=== PATIENT | female | born 1960 | race Caucasian/White ===

== ENCOUNTER 2021-05-22 18:22 | Emergency (ER) | payer MEDICARE, OTHER, SELFPAY ==
[2021-05-22 18:49] VITALS: BP 122/76; PULSE 77; RESP 16; TEMP 38.4; O2SAT 95; BMI 38.0
--- NOTE | 2021-05-22 18:58 | ED_ITS ---
HPI - Allergic Reaction General: Chief complaint: Allergic Reaction Stated complaint: Headache\Nausea\Vomiting Time Seen by Provider: 05/22/21 18:58 History of Present Illness: HPI narrative: Patient is a 61-year-old female comes to the ED with headache, and malaise. Patient received her second COVID- 19 vaccination yesterday. Today she has had a fever, headache, fatigue, nausea and body aches. Patient has not taken any Tylenol or ibuprofen today before c oming to the ED. Associated symptoms: Reports nausea; Deny abdominal pain or vomiting Review of Systems Const: Reports: fever(s), body aches, fatigue and malaise; Denies: chills Eyes: Denies: change in vision or eye discomfort ENMT: Denies: throat pain, odynophagia, nasal discharge or nasal congestion Card: Denies: chest pain, palpitations, edema, swelling of feet/ankles, dyspnea on exertion or orthopnea Resp: Denies: dyspnea, productive cough or non-productive cough GI: Reports: nausea; Denies: abdominal pain, vomiting, diarrhea, constipation or hematochezia : Denies: flank pain, dysuria or hematuria Musc: Denies: neck pain, back pain or extremity swelling Skin/Breast: Denies: rash or new lesions Neuro: Reports: headache(s); Denies: numbness in extremities or weakness in extremities PFSH ED PFSH: Social History Smoking and tobacco status: current every day smoker cigarettes Packs smoked per day: 1 Quit status (tobacco): not considering quitting Second hand smoke exposure: No Alcohol intake: never Desire information about alcohol rehabilitation?: No Desire information about substance/drug rehabilitation?: No History of recent travel: No Current gender identity: Female Physical Exam Const: COMMON NORMALS: no acute distress, patient oriented x3, healthy appea ring and alert GENERAL APPEARANCE: cooperative and comfortable HENMT: COMMON NORMALS: normocephalic HEAD & SCALP: normocephalic MOUTH: Normal oral and palatal mucosa present THROAT: posterior oropharynx normal and uvula midline Neck/C-Spine: COMMON NORMALS: supple GENERAL: Yes normal visual inspection Resp: COMMON NORMALS: normal respiratory effort, No retractions, No use of accessory muscles and clear to auscultation bilaterally AUSCULTATION: clear to auscultation bilaterally Cardio: COMMON NORMALS: regular rate, regular rhythm, S1 normal heart sound present, S2 normal heart sound present, No gallops present (Cardio), No clicks present (Cardio), No murmurs present (Cardio) and Peripheral pulses 2+ throughout RATE: regular rate RHYTHM: regular rhythm HEART SOUNDS: S1 normal heart sound present and S2 normal heart sound present PERIPHERAL PULSES: Peripheral pulses 2+ throughout GI: COMMON NORMALS: Normal to inspection, nondistended, normoactive bowel sounds present, Soft to palpation, non-tender and no masses PALPATION: Yes Soft to palpation : COMMON NORMALS: Yes no CVA tenderness BLADDER/KIDNEY EXAM: Yes no CVA tenderness Back/Pelvis: COMMON NORMALS: no CVA tenderness Extremity: COMMON NORMALS: normal to inspection Neuro: COMMON NORMALS: patient oriented x3 and moves all extremities SENSORIUM/ORIENTATION: Yes alert Skin: GENERAL SKIN EXAM: dry skin Course Vital Signs: Vital signs: Vital Signs Temperature 101.1 F H 05/22/21 18:49 Pulse Rate 86 05/22/21 19:38 Respiratory Rate 18 05/22/21 19:38 Blood Pressure 122/76 05/22/21 18:49 Pulse Oximetry 96 05/22/21 19:38 MDM - Allergic Reaction MDM Narrative: Medical decision making narrative: Patient is a 61-year-old female comes to the ED with a fever. Patient received her second COVID-19 vaccination yesterday and today she woke up with a fever body aches, left arm pain and a headache. Temperature is a 101.1 here in the ED and she has not taken any Tylenol or ibuprofen today. Exam is benign and patient appears nontoxic and in no acute distress. I discussed with patient that this is likely some side effects after getting vaccinated yesterday. He is are fairly common usually benign and I told patient to go home and rest and take Tylenol or ibuprofen to help with symptoms. Patient was given a dose of Zofran and Toradol while here in the ED and discharged home. Patient diagnosed with fever after COVID-19 vaccination. She was told to follow-up with her PCP in 7 to 10 days for reevaluation. Return to ED precautions given. Patient understood agree with plan. Discharge Plan Discharge Patient Disposition: Home Clinical Impression: Fever after COVID-19 vaccination Condition: Stable Prescriptions: New Zofran 4 mg tablet 4 mg PO Q8H PRN (Reason: nausea and vomiting) Qty: 10 RF: 0 No Action No Known Home Medications RF: 0 naproxen 500 mg tablet 500 mg PO BID PRN (Reason: pain) Qty: 60 RF: 0 Discharge Orders: Discharge ED (Routine); Ordered 05/22/21 Ordered By: Hussein Murray Discharge Diet: Regular Discharge Activity: Resume usual activity Activity Restrictions/Additional Instructions: Follow-up with medical provider as directed in 5 to 7 days reevaluation. Take medications as prescribed. Drink plenty fluids and stay hydrated. Return to the ER or your medical provider if condition worsens. Please read and understand discharge instructions. Thank you for choosing [facility] for your healthcare needs today. Please realize this is an emergency room and that we are providing you with a medical screening exam and this may not be complete and all inclusive of all the testing and or work up that you may need to determine your ailment or severity of your illness. It is very important that you follow up as instructed or that you return to the Emergency Department should you have concerns or if your condition changes or worsens in any way. Coding Level of Care Code ED Director Home [facility] for [facility] Exam Comprehensive
[2021-05-22] MEDS: ketorolac 60 mg/2 mL INJ IM (19:31)
[2021-05-22] MEDS: ondansetron 4 MG Tablet PO (19:31)
[2021-05-22 19:38] VITALS: PULSE 86; RESP 18; O2SAT 96
== END 2021-05-22 19:39 | disposition home or self-care (01) ==
PROVIDERS: Emergency Provider Physician Assistant
DX: F17.210 Nicotine dependence, cigarettes, uncomplicated (principal); R50.83 Postvaccination fever; T50.B95A Adverse effect of other viral vaccines, initial encounter
CPT/HCPCS: 96372; 99283; J1885; Q0162

== ENCOUNTER → 2021-10-31 11:07 | Outpatient (BNVA) | payer MEDICARE, OTHER, SELFPAY | PROVIDERS: PCP Chiropractor Orthopedic; Visit Provider Emergency Medicine | DX: R39.9 Unspecified symptoms and signs involving the genitourinary system; R05.9 Cough, unspecified; R06.02 Shortness of breath; R06.89 Other abnormalities of breathing; R68.89 Other general symptoms and signs; R11.0 Nausea | CPT/HCPCS: 71046; 81000; 87400 ==

== ENCOUNTER → 2022-05-18 13:31 | Outpatient (BNVA) | payer MEDICARE, OTHER, SELFPAY | PROVIDERS: PCP Chiropractor Orthopedic; Visit Provider Nurse Practitioner Family | DX: R68.89 Other general symptoms and signs (principal); B34.9 Viral infection, unspecified | CPT/HCPCS: 87400 ==

== ENCOUNTER → 2022-06-02 12:14 | Outpatient (BNVA) | payer MEDICARE, OTHER, SELFPAY | PROVIDERS: PCP Chiropractor Orthopedic; Visit Provider Emergency Medicine | DX: R68.89 Other general symptoms and signs (principal); J10.1 Influenza due to other identified influenza virus with other respiratory manifestations | CPT/HCPCS: 87400 ==